=== PATIENT | male | born 1955 | race Caucasian/White ===

== ENCOUNTER → 2017-02-16 | Outpatient (CLI) | payer OTHER | END | disposition home or self-care (01) | LOC: CFH 07:55 | PROVIDERS: ATTEND Specialist | DX: N20.0 Calculus of kidney (principal); R14.0 Abdominal distension (gaseous) | CPT/HCPCS: 74000 ==

== ENCOUNTER → 2017-07-04 | Outpatient (CLI) | payer OTHER | END | disposition home or self-care (01) | LOC: CFH 06:54 | PROVIDERS: ATTEND Specialist | DX: N20.0 Calculus of kidney (principal) | CPT/HCPCS: 74000 ==

== ENCOUNTER → 2017-07-18 | Outpatient (CLI) | payer OTHER | END | disposition home or self-care (01) | LOC: RAD 09:42 | PROVIDERS: ATTEND Nurse Practitioner Family | DX: R60.0 Localized edema (principal); E11.9 Type 2 diabetes mellitus without complications ==

== ENCOUNTER 2017-07-28 15:51 | Emergency (ER) | payer OTHER ==
[~2017-07-28] VITALS: Ht 177.8 cm; Wt 97.0 kg
[2017-07-28 15:56] VITALS: BP 166/77
[2017-07-28 17:53] LABS: HEMATOCRIT 33.7 % (39.2-51.8); WHITE BLOOD COUNT 8.6 x10^3/uL (3.4-10)
[2017-07-28 18:02] LABS: ASPARTATE AMINO TRANSFERASE 11 U/L (15-37); BLOOD UREA NITROGEN 20 mg/dL (7-18)
== END 2017-07-28 18:32 | disposition home or self-care (01) ==
LOC: ED 18:26
DX: R60.0 Localized edema (principal)
CPT/HCPCS: 36415; 71010; 80053; 83880; 85025; 93005; 99285

== ENCOUNTER → 2017-12-02 | Outpatient (CLI) | payer OTHER | END | disposition home or self-care (01) | LOC: CFH 07:27 | PROVIDERS: ATTEND Specialist | DX: N20.0 Calculus of kidney (principal) | CPT/HCPCS: 74018 ==

== ENCOUNTER → 2018-08-22 | Outpatient (CLI) | payer OTHER | END | disposition home or self-care (01) | LOC: CFH 15:51 | PROVIDERS: ATTEND Orthopaedic Surgery Foot and Ankle Surgery | DX: M24.175 Other articular cartilage disorders, left foot (principal) ==

== ENCOUNTER → 2018-10-09 | Outpatient (CLI) | payer OTHER | END | disposition home or self-care (01) | LOC: CFH 14:15 | PROVIDERS: ATTEND Specialist | DX: N20.0 Calculus of kidney (principal); I87.8 Other specified disorders of veins | CPT/HCPCS: 74018 ==

== ENCOUNTER → 2018-12-25 | Outpatient (CLI) | payer OTHER | END | disposition home or self-care (01) | LOC: CFH 09:22 | PROVIDERS: ATTEND Nurse Practitioner Family | DX: S13.150D Subluxation of C4/C5 cervical vertebrae, subsequent encounter (principal); M47.812 Spondylosis without myelopathy or radiculopathy, cervical region; M48.02 Spinal stenosis, cervical region; M40.292 Other kyphosis, cervical region; E11.40 Type 2 diabetes mellitus with diabetic neuropathy, unspecified; X58.XXXD Exposure to other specified factors, subsequent encounter | CPT/HCPCS: 72050; 82043; 82570 ==

== ENCOUNTER → 2019-01-31 | Outpatient (CLI) | payer OTHER | END | disposition home or self-care (01) | LOC: CFH 15:14 | PROVIDERS: ATTEND Specialist | DX: N20.0 Calculus of kidney (principal); I87.8 Other specified disorders of veins | CPT/HCPCS: 74018 ==

== ENCOUNTER → 2019-02-13 | Outpatient (CLI) | payer OTHER | END | disposition home or self-care (01) | LOC: CFH 12:01 | PROVIDERS: ATTEND Nurse Practitioner Family | DX: R05 Cough (principal) | CPT/HCPCS: 71046 ==

== ENCOUNTER → 2019-04-04 | Outpatient (CLI) | payer OTHER | END | disposition home or self-care (01) | LOC: CFH 13:14 | PROVIDERS: ATTEND Physician Assistant Surgical | DX: S13.130A Subluxation of C2/C3 cervical vertebrae, initial encounter (principal); S13.140A Subluxation of C3/C4 cervical vertebrae, initial encounter; M48.02 Spinal stenosis, cervical region; M50.33 Other cervical disc degeneration, cervicothoracic region; E11.9 Type 2 diabetes mellitus without complications; I10 Essential (primary) hypertension; X58.XXXA Exposure to other specified factors, initial encounter; Y93.89 Activity, other specified; Y92.89 Other specified places as the place of occurrence of the external cause; Y99.8 Other external cause status | CPT/HCPCS: 72040 ==

== ENCOUNTER 2019-04-12 13:46 | Outpatient (CLI) | payer OTHER | END 2019-04-12 23:59 | disposition home or self-care (01) | LOC: CFH 13:46 | PROVIDERS: ATTEND Nurse Practitioner Family | DX: J98.4 Other disorders of lung (principal) | CPT/HCPCS: 71046 ==

== ENCOUNTER 2020-04-25 08:00 | Outpatient (CLI) | payer OTHER | END 2020-04-25 23:59 | disposition home or self-care (01) | LOC: OUT 08:00 → EDSTATUS 16:15 → OUT 23:59 | PROVIDERS: ATTEND Orthopaedic Surgery | DX: M79.671 Pain in right foot (principal); Z11.59 Encounter for screening for other viral diseases; Z53.8 Procedure and treatment not carried out for other reasons | CPT/HCPCS: 36415; 87635 ==

== ENCOUNTER → 2020-08-08 | Outpatient (CLI) | payer MEDICARE, OTHER | END | disposition home or self-care (01) | LOC: RAD 13:02 | PROVIDERS: ATTEND Specialist | DX: R10.9 Unspecified abdominal pain (principal) | CPT/HCPCS: 74018 ==